=== PATIENT | female | born 1995 | race Two or more races ===

== ENCOUNTER 2016-11-02 12:48 | Emergency (ER) | payer OTHER ==
[~2016-11-02] VITALS: Ht 152.4 cm; Wt 109.9 kg
[2016-11-02 15:46] VITALS: BP 123/83
== END 2016-11-02 15:46 | disposition home or self-care (01) ==
LOC: ED 12:48
DX: L03.012 Cellulitis of left finger (principal)

== ENCOUNTER 2016-11-04 10:00 | Emergency (ER) | payer OTHER ==
[~2016-11-04] VITALS: Ht 152.4 cm; Wt 109.9 kg
[2016-11-04 10:07] VITALS: BP 124/85
== END 2016-11-04 11:48 | disposition home or self-care (01) ==
LOC: ED 10:00
DX: L03.012 Cellulitis of left finger (principal)
CPT/HCPCS: 90715; J2001

== ENCOUNTER 2016-11-06 10:01 | Emergency (ER) | payer OTHER ==
[~2016-11-06] VITALS: Ht 152.4 cm; Wt 109.8 kg
[2016-11-06 10:02] VITALS: BP 128/81
== END 2016-11-06 10:53 | disposition home or self-care (01) ==
LOC: ED 10:01
DX: Z48.01 Encounter for change or removal of surgical wound dressing (principal)

== ENCOUNTER 2016-12-03 12:22 | Emergency (ER) | payer OTHER ==
[~2016-12-03] VITALS: Ht 152.4 cm; Wt 108.9 kg
[2016-12-03 12:28] VITALS: BP 121/77
== END 2016-12-03 12:55 | disposition home or self-care (01) ==
LOC: ED 12:22
DX: L03.012 Cellulitis of left finger (principal)
CPT/HCPCS: J2001

== ENCOUNTER 2019-02-26 19:24 | Emergency (ER) | payer SELFPAY ==
[~2019-02-26] VITALS: Ht 152.4 cm; Wt 103.4 kg
[2019-02-26 19:47] VITALS: Ht 152.4 cm; Wt 103.4 kg
[2019-02-26 21:37] VITALS: BP 114/77
== END 2019-02-26 21:37 | disposition home or self-care (01) ==
LOC: ED 19:24
DX: L03.011 Cellulitis of right finger (principal)

== ENCOUNTER 2019-08-04 15:30 | Emergency (ER) | payer SELFPAY ==
[~2019-08-04] VITALS: Ht 152.4 cm; Wt 72.6 kg
[2019-08-04 15:33] VITALS: Ht 152.4 cm; Wt 72.6 kg
[2019-08-04 17:48] VITALS: BP 117/74
== END 2019-08-04 17:48 | disposition home or self-care (01) ==
LOC: ED 15:30
DX: J18.9 Pneumonia, unspecified organism (principal); Z20.828 Contact with and (suspected) exposure to other viral communicable diseases
CPT/HCPCS: Q0092